=== PATIENT | male | born 1990 | race American Indian/Alaskan Native ===

== ENCOUNTER 2021-02-09 19:02 | Emergency (ER) | payer OTHER ==
[2021-02-09 19:39] VITALS: BP 117/77
--- NOTE | 2021-02-09 19:58 | Emergency Department Report ---
ED Abdominal Pain HPI - General Chief Complaint: Abdominal Pain Stated Complaint: ABD PAIN, FREQUENT BATHROOM TRIPS Time Seen by Provider: 02/09/21 19:47 Source: patient Mode of arrival: Ambulatory Limitations: No Limitations - History of Present Illness Initial Comments: 30-year-old male who presents for abdominal pain bilateral lower x3 days with diarrhea nausea. Patient denies fevers chills, last p.o. intake was yesterday. Pain described as cramping aching 5/10. Symptoms are exacerbated by p.o. intake. Symptoms are relieved by nothing tried. Patient denies smoking denies substance. MD Complaint: abdominal pain - Related Data Previous Rx's Medication Instructions Recorded Last Taken Type LORazepam [Ativan] 1 mg PO QHS PRN #6 tab 12/19/13 Unknown Rx Ondansetron [Zofran Odt] 4 mg SL Q6H PRN #8 tab.rapdis 12/19/13 Unknown Rx Doxycycline Hyclate [Doxycycline 100 mg PO BID 7 Days #14 tablet 02/09/21 Unknown Rx Hyclate TAB] Ondansetron [Zofran Odt] 4 mg PO Q8HR #12 tab.rapdis 02/09/21 Unknown Rx Allergies Allergy/AdvReac Type Severity Reaction Status Date / Time No Known Allergies Allergy Unverified 12/19/13 07:22 ED Review of Systems ROS: Stated complaint: ABD PAIN, FREQUENT BATHROOM TRIPS Other details as noted in HPI Constitutional: denies: chills, fever Eyes: denies: eye pain, eye discharge, vision change ENT: denies: ear pain, throat pain Respiratory: denies: cough, shortness of breath, wheezing Cardiovascular: denies: chest pain, palpitations Endocrine: no symptoms reported Gastrointestinal: abdominal pain, nausea, diarrhea. denies: hematemesis, melena, hematochezia Genitourinary: as per HPI, urgency, dysuria, frequency. denies: hematuria, discharge, testicular pain, testicular mass Musculoskeletal: back pain Skin: denies: rash, lesions Neurological: denies: headache, weakness, paresthesias, vertigo Psychiatric: denies: anxiety, depression Hematological/Lymphatic: denies: easy bleeding, easy bruising ED Past Medical Hx - Past Medical History Previous Medical History?: No - Surgical History Past Surgical History?: Yes Additional Surgical History: Tonsillectomy - Social History Smoking Status: Current Every Day Smoker Substance Use Type: Alcohol - Medications Home Medications: Home Medications Medication Instructions Recorded Confirmed Last Taken Type LORazepam [Ativan] 1 mg PO QHS PRN #6 tab 12/19/13 Unknown Rx Ondansetron [Zofran Odt] 4 mg SL Q6H PRN #8 tab.rapdis 12/19/13 Unknown Rx Doxycycline Hyclate [Doxycycline 100 mg PO BID 7 Days #14 tablet 02/09/21 U nknown Rx Hyclate TAB] Ondansetron [Zofran Odt] 4 mg PO Q8HR #12 tab.rapdis 02/09/21 Unknown Rx ED Physical Exam - General Limitations: No Limitations General appearance: alert, in no apparent distress - Head Head exam: Present: atraumatic, normocephalic - Eye Eye exam: Present: normal appearance, EOMI Pupils: Present: normal accommodation - ENT ENT exam: Present: mucous membranes moist - Neck Neck exam: Present: normal inspection, full ROM. Absent: tenderness - Respiratory Respiratory exam: Present: normal lung sounds bilaterally. Absent: wheezes, stridor - Cardiovascular Cardiovascular Exam: Present: regular rate, normal rhythm, normal heart sounds. Absent: systolic murmur, diastolic murmur, rubs, gallop - GI/Abdominal GI/Abdominal exam: Present: soft, normal bowel sounds. Absent: distended, tenderness, guarding, rebound, rigid, bruit, hernia - Rectal Rectal exam: Present: deferred - exam: Present: testicular tenderness, circumcision, other (left epididymal tenderness engourged. ). Absent: urethral discharge, scrotal swelling, vertical testicular lie - Extremities Exam Extremities exam: Present: normal inspection, full ROM. Absent: tenderness - Back Exam Back exam: Present: normal inspection, full ROM. Absent: CVA tenderness (R), CVA tenderness (L) - Neurological Exam Neurological exam: Present: alert, oriented X3, CN II-XII intact, normal gait - Psychiatric Psychiatric exam: Present: normal affect, normal mood - Skin Skin exam: Present: warm, dry, intact, normal color. Absent: rash ED Course Vital Signs 02/09/21 19:38 Temperature 98.1 F Pulse Rate 76 Respiratory 18 Rate Blood Pressure 117/77 O2 Sat by Pulse 100 Oximetry ED Medical Decision Making - Lab Data Result diagrams: 02/09/21 19:54 02/09/21 19:54 Labs 02/09/21 02/09/21 02/09/21 19:51 19:54 19:54 WBC 6.6 RBC 4.55 Hgb 13.9 Hct 43.6 MCV 96 H MCH 31 MCHC 32 RDW 14.2 Plt Count 196 Lymph % (Auto) 52.6 H [place] % (Auto) 11.1 H Eos % (Auto) 1.0 Baso % (Auto) 0.4 Lymph # (Auto) 3.5 [place] # (Auto) 0.7 Eos # (Auto) 0.1 Baso # (Auto) 0.0 Seg Neutrophils % 34.9 L Seg Neutrophils # 2.3 Sodium 139 Potassium 4.4 Chloride 104.0 Carbon Dioxide 22 Anion Gap 17 BUN 14 Creatinine 0.9 Estimated GFR > 60 BUN/Creatinine Ratio 16 Glucose 85 Calcium 9.0 Total Bilirubin 0.40 AST 36 ALT 40 Alkaline Phosphatase 60 Total Protein 7.2 Albumin 4.3 Albumin/Globulin Ratio 1.5 Lipase 53 Urine Color Yellow Urine Turbidity Clear Urine pH 6.0 Ur Specific [place] 1.023 Urine Protein <15 mg/dl Urine Glucose (UA) Neg Urine Ketones Neg Urine Blood Neg Urine Nitrite Neg Urine Bilirubin Neg Urine Urobilinogen 2.0 Ur Leukocyte Esterase Neg Urine WBC (Auto) 4.0 Urine RBC (Auto) 5.0 U Epithel Cells (Auto) < 1.0 Urine Mucus 2+ - Radiology Data Radiology results: report reviewed, image reviewed ABDOMEN 2 VIEWS INDICATION / CLINICAL INFORMATION: abd pain. COMPARISON: None available. FINDINGS: TUBES / LINES: None. BOWEL GAS PATTERN: No significant abnormality. FREE AIR / EXTRALUMINAL GAS: None seen. ADDITIONAL FINDINGS: No significant additional findings. CHEST: Visualized chest shows no significant abnormality. IMPRESSION: 1. No significant abnormality. Signer Name: Enriqueta Bran MD Signed: 02/09/2021 9:45 PM Workstation Name: [id number] Transcribed By: ISMA Dictated By: ENRIQUETA BRAN MD Electronically Authenticated By: ENRIQUETA BRAN MD Signed Date/Time: 02/09/212144 DD/ 44 TD/TT: Print - Medical Decision Making KUB normal gas pattern, labs noted normal, trace white blood cells UA. Patient now states dysuria frequency and left testicle pain no swelling. Exam consistent with orchitis versus epididymitis. Plan DC to home prescription doxycycline. Hydrate. Follow-up with your doctor in 2 to 3 days. Patient verbalized agreement and understanding with discharge plan. Patient will be DC'd home in stable condition at this time. Critical care attestation.: If time is entered above; I have spent that time in minutes in the direct care of this critically ill patient, excluding procedure time. ED Disposition Clinical Impression: Epididymitis Abdominal pain Qualifiers: Abdominal location: left lower quadrant Qualified Code(s): R10.32 - Left lower quadrant pain Disposition: HOME / SELF CARE / HOMELESS Is pt being admited?: No Does the pt Need Aspirin: No Condition: Stable Instructions: Epididymitis (ED), Epididymitis, Abdominal Pain, Adult, [place] Additional Instructions: Take all medications as prescribed. Return to emergency department should symptoms worsen. Prescriptions: Doxycycline Hyclate [Doxycycline Hyclate TAB] 100 mg PO BID 7 Days #14 tablet Ondansetron [Zofran Odt] 4 mg PO Q8HR #12 tab.rapdis Referrals: CRISPIN ARNOLD MD [Staff Physician] - 3-5 Days Forms: [facility] Treatment and Prevention Time of Disposition: 22:19
[2021-02-09 20:43] LABS: Basophils % (Auto) 0.4 % (0.0-1.8); Eosinophils # (Auto) 0.1 K/mm3 (0.0-0.4); Hematocrit 43.6 % (35.5-45.6); Hemoglobin 13.9 gm/dl (11.8-15.2); Lymphocytes # (Auto) 3.5 K/mm3 (1.2-5.4); Lymphocytes % (Auto) 52.6 % (13.4-35.0); Mean Corpuscular HGB Conc 32 % (32-34); Mean Corpuscular Volume 96 fl (84-94); Monocytes # (Auto) 0.7 K/mm3 (0.0-0.8); Monocytes % (Auto) 11.1 % (0.0-7.3); Platelet Count 196 K/mm3 (140-440); Red Blood Count 4.55 M/mm3 (3.65-5.03); Red Cell Distribution Width 14.2 % (13.2-15.2)
[2021-02-09 20:44] LABS: Alanine Aminotransferase 40 units/L (7-56); Albumin 4.3 g/dL (3.9-5); BUN/Creatinine Ratio 16; Blood Urea Nitrogen 14 mg/dL (9-20); Hemolysis Index 11
[2021-02-09 20:49] LABS: Bilirubin,Urine NEG (Negative); Blood,Urine NEG (Negative); Color,Urine Yellow (Yellow); Mucus,Urine 2+ /HPF; Protein,Urine <15 mg/dL mg/dL (Negative)
--- NOTE | 2021-02-09 21:49 | XRay Report ---
ABDOMEN 2 VIEWS INDICATION / CLINICAL INFORMATION: abd pain. COMPARISON: None available. FINDINGS: TUBES / LINES: None. BOWEL GAS PATTERN: No significant abnormality. FREE AIR / EXTRALUMINAL GAS: None seen. ADDITIONAL FINDINGS: No significant additional findings. CHEST: Visualized chest shows no significant abnormality. IMPRESSION: 1. No significant abnormality. Signer Name: Al Thakkar MD Signed: 02/09/2021 9:45 PM Workstation Name: [id number]
== END 2021-02-09 22:40 | disposition home or self-care (01) ==
LOC: ED 19:02
DX: N45.1 Epididymitis (principal); F17.200 Nicotine dependence, unspecified, uncomplicated; Z90.89 Acquired absence of other organs; Z79.899 Other long term (current) drug therapy
CPT/HCPCS: 36415; 74018; 80053; 81001; 83690; 85025; 99283